=== PATIENT | male | born 1960 | race Caucasian/White ===

== ENCOUNTER 2018-09-09 15:10 | Outpatient (REF) | payer MEDICARE, MEDICAID, SELFPAY ==
[2018-09-09 19:43] LABS: ALT 17 U/L (12-78); AST 17 U/L (15-37); Albumin 3.4 g/dL (3.4-5.0); Alkaline Phosphatase 58 U/L (46-116); Anion Gap 10.1 mmol/L (3-11); BUN 22 mg/dL (7-18); Bilirubin, Total 0.3 mg/dL (0.2-1.0); CO2 25.9 mmol/L (21.0-32.0); CREATININE 0.88 mg/dL (0.70-1.30); Calcium 9.2 mg/dL (8.5-10.1); Chloride 104 mmol/L (98-107); Cholesterol 180 mg/dL (50-200); Glucose 78 mg/dL (70-100); HDL Cholesterol 91 mg/dL (40-60); LDL CHOLESTEROL 72 mg/dL (<100); Potassium 4.7 mmol/L (3.5-5.1); Sodium 140 mmol/L (136-145); TSH (W/Ref FT4) 0.82 uIU/mL (0.358-3.74); Total Protein 7.5 g/dL (6.4-8.2); Triglyceride 78 mg/dL (30-150)
[2018-09-09 20:15] LABS: Magnesium 1.5 mg/dL (1.8-2.4)
== END 2018-09-09 15:30 ==
LOC: NCHCN 15:10
PROVIDERS: PCP Family Medicine; Visit Provider Family Medicine
DX: I25.10 Atherosclerotic heart disease of native coronary artery without angina pectoris (principal); F10.20 Alcohol dependence, uncomplicated; R94.6 Abnormal results of thyroid function studies
CPT/HCPCS: 80053; 80061; 83721; 83735; 84443

== ENCOUNTER 2019-10-10 15:16 | Outpatient (REF) | payer MEDICARE, MEDICAID, SELFPAY ==
[2019-10-10 21:04] LABS: HCT 35.3 % (40.0-50.0); HGB 11.5 g/dL (13.5-17.5); Mean Corp. HGB Concentration 32.6 g/dL (32.0-36.0); Mean Corpuscular Hemoglobin 28.8 pg (27.0-33.0); Mean Corpuscular Volume 88.5 fL (80-95); Mean Platelet Volume 10.4 fL (8.0-11.0); Platelet Count 313 x1000/uL (130-400); RBC 3.99 m/cumm (4.50-6.00); RBC Distribution Width 15.9 % (11.8-14.1); White Blood Cell Count 8.31 k/cumm (4.4-10.8)
[2019-10-10 21:08] LABS: Magnesium 1.4 mg/dL (1.8-2.4); TSH (W/Ref FT4) 0.72 uIU/mL (0.36-3.74); Vitamin B12 445 pg/mL (193-986)
[2019-10-12 11:53] LABS: HIV-1/2 Ag & Ab Screen Negative (Negative)
== END 2019-10-10 15:36 ==
LOC: NCHCN 15:16
PROVIDERS: PCP Family Medicine; Visit Provider Family Medicine
DX: D64.9 Anemia, unspecified (principal); E61.2 Magnesium deficiency; Z11.4 Encounter for screening for human immunodeficiency virus [HIV]; K51.90 Ulcerative colitis, unspecified, without complications; R94.6 Abnormal results of thyroid function studies
CPT/HCPCS: 85027; 87389; 82607; 83735; 84443

== ENCOUNTER 2021-11-25 19:24 | Outpatient (REF) | payer OTHER, MEDICAID, SELFPAY ==
[2021-11-25 20:13] LABS: HGB 14.9 g/dL (13.5-17.5); MCH 29.1 pg (27.0-33.0); MCHC 32.4 % (32.0-36.0); MCV 89.8 fL (80-95); MPV 10.6 fL (8.0-11.0); Platelet Count 323 10^3/uL (130-400); RBC 5.12 10^6/uL (4.36-5.78); RDW 14.5 % (11.8-14.1); RDW-SD 47.9 fL; WBC 9.08 10^3/uL (4.4-10.8)
[2021-11-25 20:21] LABS: Iron 76 ug/dL (65-175); Total Iron Binding Capacity 347 ug/dL (250-450); Transferrin Sat 22 % (20-55)
[2021-11-25 20:35] LABS: Anion Gap 10.1 mmol/L (3-11); BUN 17 mg/dL (7-18); CO2 25.9 mmol/L (21.0-32.0); Calcium 9.4 mg/dL (8.5-10.1); Calculated LDL 90 mg/dL (<100); Chloride 104 mmol/L (98-107); Cholesterol 187 mg/dL (<200); Ferritin 131 ng/mL (26-388); Glucose 95 mg/dL (74-106); HDL Cholesterol 85 mg/dL (40-60); Magnesium 1.6 mg/dL (1.8-2.4); Potassium 3.7 mmol/L (3.5-5.1); Sodium 140 mmol/L (136-145); Triglyceride 61 mg/dL (<150)
[2021-11-25 20:52] LABS: Hemoglobin A1C 5.5 % (<5.7)
== END 2021-11-25 19:25 | disposition home or self-care (01) ==
LOC: NCHCN 19:24
PROVIDERS: PCP Family Medicine; Visit Provider Family Medicine
DX: D64.9 Anemia, unspecified (principal); I25.10 Atherosclerotic heart disease of native coronary artery without angina pectoris; F25.9 Schizoaffective disorder, unspecified; E61.2 Magnesium deficiency; R79.89 Other specified abnormal findings of blood chemistry
CPT/HCPCS: 80048; 80061; 85027; 82728; 83036; 83540; 83550; 83735

== ENCOUNTER 2022-12-15 16:27 | Outpatient (REF) | payer OTHER, MEDICAID, SELFPAY ==
[2022-12-15 19:35] LABS: Magnesium 1.7 mg/dL (1.8-2.4); Vitamin B12 887 pg/mL (193-986)
== END 2022-12-15 16:28 | disposition home or self-care (01) ==
LOC: NCHCN 16:27
PROVIDERS: PCP Family Medicine; Visit Provider Family Medicine
DX: E61.2 Magnesium deficiency (principal); K51.90 Ulcerative colitis, unspecified, without complications; Z90.49 Acquired absence of other specified parts of digestive tract; Z79.899 Other long term (current) drug therapy
CPT/HCPCS: 82607; 83735

== ENCOUNTER → 2023-06-08 14:19 | Outpatient (BNVA) | payer OTHER, MEDICAID, SELFPAY | PROVIDERS: PCP Family Medicine; Referring Provider Family Medicine; Visit Provider Podiatrist | DX: B35.1 Tinea unguium (principal); L60.3 Nail dystrophy; E05.90 Thyrotoxicosis, unspecified without thyrotoxic crisis or storm; Z79.01 Long term (current) use of anticoagulants; L84 Corns and callosities | CPT/HCPCS: 11055; 11721 ==

== ENCOUNTER → 2023-09-14 14:27 | Outpatient (BNVA) | payer OTHER, MEDICAID, SELFPAY | PROVIDERS: PCP Family Medicine; Referring Provider Family Medicine; Visit Provider Podiatrist | DX: B35.1 Tinea unguium (principal); L60.3 Nail dystrophy; L84 Corns and callosities; E05.90 Thyrotoxicosis, unspecified without thyrotoxic crisis or storm; R94.6 Abnormal results of thyroid function studies; Z79.01 Long term (current) use of anticoagulants | CPT/HCPCS: 11055; 11057; 11721 ==

== ENCOUNTER → 2024-01-11 14:25 | Outpatient (BNVA) | payer OTHER, MEDICAID, SELFPAY | PROVIDERS: PCP Nurse Practitioner Family; Referring Provider Nurse Practitioner Family; Visit Provider Podiatrist | DX: B35.1 Tinea unguium (principal); L60.3 Nail dystrophy; L84 Corns and callosities; E05.90 Thyrotoxicosis, unspecified without thyrotoxic crisis or storm; R94.6 Abnormal results of thyroid function studies; Z79.01 Long term (current) use of anticoagulants; L85.1 Acquired keratosis [keratoderma] palmaris et plantaris; R09.89 Other specified symptoms and signs involving the circulatory and respiratory systems; L65.9 Nonscarring hair loss, unspecified; M21.41 Flat foot [pes planus] (acquired), right foot; M21.42 Flat foot [pes planus] (acquired), left foot; L60.8 Other nail disorders; I73.89 Other specified peripheral vascular diseases | CPT/HCPCS: 11057; 11721 ==

== ENCOUNTER 2024-01-31 18:11 | Outpatient (REF) | payer OTHER, MEDICAID, SELFPAY ==
[2024-01-31 18:54] LABS: HGB 14.1 g/dL (13.5-17.5); MCH 29.2 pg (27.0-33.0); MCHC 32.8 % (32.0-36.0); MCV 89 fL (80-95); Platelet Count 293 10^3/uL (130-400); RBC 4.83 10^6/uL (4.36-5.78); RDW 13.8 % (11.8-14.1); WBC 8.09 10^3/uL (4.4-10.8)
[2024-01-31 19:21] LABS: Hemoglobin A1C 5.6 % (<5.7)
[2024-01-31 19:46] LABS: Iron 65 ug/dL (65-175); Total Iron Binding Capacity 401 ug/dL (250-450); Transferrin Sat 16 % (20-55)
[2024-01-31 19:51] LABS: ALT 28 U/L (16-63); AST 22 U/L (15-37); Albumin 3.6 g/dL (3.4-5.0); Alkaline Phosphatase 81 U/L (46-116); Anion Gap 8.5 mmol/L (3-11); BUN 18 mg/dL (7-18); Bilirubin, Total 0.51 mg/dL (0.2-1.0); CO2 28.5 mmol/L (21.0-32.0); Calcium 9.2 mg/dL (8.5-10.1); Calculated LDL 99 mg/dL (<100); Chloride 103 mmol/L (98-107); Cholesterol 211 mg/dL (<200); Estimated GFR 85.63 (mL/min/1.73m2); Ferritin 117 ng/mL (26-388); Folate 18.1 ng/mL (8.6-20.0); Glucose 88 mg/dL (74-106); HDL Cholesterol 99 mg/dL (40-60); Magnesium 1.8 mg/dL (1.8-2.4); Potassium 4.8 mmol/L (3.5-5.1); Sodium 140 mmol/L (136-145); Total Protein 8.1 g/dL (6.4-8.2); Triglyceride 67 mg/dL (<150); Vitamin B12 819 pg/mL (193-986); Vitamin D 25 Total 18.6 ng/mL (30-100)
== END 2024-01-31 18:12 | disposition home or self-care (01) ==
LOC: NCHCN 18:11
PROVIDERS: PCP Nurse Practitioner Family; Visit Provider Nurse Practitioner Family
DX: I25.10 Atherosclerotic heart disease of native coronary artery without angina pectoris (principal); F25.8 Other schizoaffective disorders; E55.9 Vitamin D deficiency, unspecified; K51.90 Ulcerative colitis, unspecified, without complications; Z86.2 Personal history of diseases of the blood and blood-forming organs and certain disorders involving the immune mechanism; Z79.899 Other long term (current) drug therapy; Z90.49 Acquired absence of other specified parts of digestive tract; Z93.2 Ileostomy status
CPT/HCPCS: 80053; 80061; 82306; 85027; 82607; 82728; 82746; 83036; 83540; 83550; 83735

== ENCOUNTER → 2024-05-16 14:29 | Outpatient (BNVA) | payer OTHER, MEDICAID, SELFPAY | PROVIDERS: PCP Nurse Practitioner Family; Referring Provider Nurse Practitioner Family; Visit Provider Podiatrist | DX: B35.1 Tinea unguium (principal); L60.3 Nail dystrophy; L84 Corns and callosities; E05.90 Thyrotoxicosis, unspecified without thyrotoxic crisis or storm; R94.6 Abnormal results of thyroid function studies; Z79.01 Long term (current) use of anticoagulants; R09.89 Other specified symptoms and signs involving the circulatory and respiratory systems; L60.2 Onychogryphosis; L60.8 Other nail disorders | CPT/HCPCS: 11057; 11721 ==

== ENCOUNTER → 2024-09-12 14:27 | Outpatient (BNVA) | payer MEDICARE, MEDICAID, SELFPAY | PROVIDERS: PCP Nurse Practitioner Family; Referring Provider Nurse Practitioner Family; Visit Provider Podiatrist | DX: L60.3 Nail dystrophy (principal); B35.1 Tinea unguium; L84 Corns and callosities; E05.90 Thyrotoxicosis, unspecified without thyrotoxic crisis or storm; R94.6 Abnormal results of thyroid function studies; Z79.01 Long term (current) use of anticoagulants; R09.89 Other specified symptoms and signs involving the circulatory and respiratory systems; I25.10 Atherosclerotic heart disease of native coronary artery without angina pectoris; E55.9 Vitamin D deficiency, unspecified; M79.671 Pain in right foot; M79.672 Pain in left foot; L85.8 Other specified epidermal thickening; L60.2 Onychogryphosis; L60.8 Other nail disorders; I73.89 Other specified peripheral vascular diseases | CPT/HCPCS: 11057; 11721 ==

== ENCOUNTER 2024-11-09 10:56 | Emergency (ER) | payer MEDICARE, MEDICAID, SELFPAY ==
[2024-11-09 11:09] VITALS: BP 157/81; PULSE 72; RESP 17; TEMP 36.7; O2SAT 99
[2024-11-09 11:12] VITALS: BP 157/81; PULSE 72; RESP 17; TEMP 36.7; O2SAT 99
--- NOTE | 2024-11-09 11:29 | W.ED.GENAD ---
Discharge Plan Disposition Patient Disposition: Home Condition: Stable Discharge Details Clinical Impression: Intestinal stoma prolapse Primary Care Provider: TING DAVILA ED Provider: Jagdish Dean Home Meds and New Rx's Prescriptions: Continued ketoconazole 2 % cream 1 applic topical DAILY magnesium oxide 400 mg magnesium capsule 400 mg PO BID olanzapine [Zyprexa] 5 MG tablet 5 mg PO HS calcium carbonate [Calcium 600] 600 MG tablet 600 mg PO BID mirtazapine 45 MG tablet 45 mg PO HS folic acid 1 MG tablet 1 mg PO DAILY cholecalciferol (vitamin D3) 1,000 UNITS tablet 1,000 unit PO .MON/WED/FRI Patient Comments: pt not able to confirm at this time cyanocobalamin (vitamin B-12) 2,500 MCG tablet 1,000 mcg PO DAILY Patient Comments: pt lethargic, not answering questions well. atorvastatin [Lipitor] 40 MG tablet 40 mg PO QPM Qty: 90 0RF metoprolol succinate 100 MG tablet extended release 24 hr 100 mg PO DAILY Qty: 90 0RF clopidogrel [Plavix] 75 MG tablet 75 mg PO DAILY Qty: 90 0RF Discharge Instructions Instructions: Ileostomy Diet Additional Instructions: You were seen in the emergency department for your prolapsed stoma, it has been prolapsed in the past and has been this way for months, it is working properly has no evidence of obstruction or necrosis, I discussed this with the surgeon, you are welcome to do an outpatient follow-up by speaking with your primary care provider for your referral to surgery practice of your choice, I have attached the number of Dr. Bowling who did your prior surgery as well as our surgical office, please contact your primary care for referral, please return to the ER for any signs of obstruction or necrosis or blackness to your stoma. Referrals: [facility] [Provider Group] [facility] [Outside] (Dr. Bowling who did your prior surgery works here now.) TING DAVILA, [employer] [Primary Care Provider] - Discharge Data Discharge Date/Time-TO BE ENTERED AT DEPARTURE: 11/09/24 11:42 HPI General Date/Time Provider Initiated Documentation: 11/09/24 11:22. 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 Bowling. Quality described as stoma at its baseline, it is very prolapsed at least 10 inches, but patient said this has been this way before, it does reduce at he calms on his own, but immediately comes back out, no radiation to blockage, black or necrotic tissue on stoma, melena, bright red stool in stoma bag. Severity is described as 0/10. Palliating factors include nothing specific. Provoking factors include nothing specific. Patient not anticoagulated. Related Data Home Medications ?Medication ?Instructions ?Recorded ?Confirmed calcium carbonate (Calcium 600) 600 mg PO BID 02/04/14 09/12/24 cholecalciferol (vitamin D3) 25 1,000 unit PO .MON/WED/Wed02/04/14 09/12/24 mcg (1,000 unit) tablet folic acid 1 mg tablet 1 mg PO DAILY 02/04/14 09/12/24 mirtazapine 45 mg tablet 45 mg PO HS 02/04/14 09/12/24 olanzapine 5 mg tablet (Zyprexa) 5 mg PO HS 02/04/14 09/12/24 cyanocobalamin (vitamin B-12) 1,000 mcg PO DAILY 08/05/16 09/12/24 2,500 mcg tablet atorvastatin 40 mg tablet (Lipitor) 40 mg PO QPM #90 tabs 08/09/16 09/12/24 clopidogrel 75 mg tablet (Plavix) 75 mg PO DAILY #90 tabs 08/09/16 09/12/24 metoprolol succinate 100 mg 100 mg PO DAILY ##90 08/09/16 09/12/24 tablet,extended release 24 hr magnesium oxide 400 mg PO BID 02/17/23 09/12/24 ketoconazole 2 % topical cream 1 applic topical DAILY 05/15/24 09/12/24 Previous Rx's ?Medication ?Instructions ?Recorded atorvastatin 40 mg tablet (Lipitor) 40 mg PO QPM #90 tabs 08/09/16 clopidogrel 75 mg tablet (Plavix) 75 mg PO DAILY #90 tabs 08/09/16 metoprolol succinate 100 mg 100 mg PO DAILY ##90 08/09/16 tablet,extended release 24 hr Allergies Allergy/AdvReac Type Severity Reaction Status Date / Time aspirin Allergy Severe SEVERE Unverified 09/14/23 14:40 HIVES Penicillins Allergy Unknown unkown Unverified 09/14/23 14:40 General Stated Complaint: Abd Prob JONH: 3 Review of Systems All systems reviewed & are unremarkable except as noted in HPI and below Exam Narrative Exam Narrative: GENERAL APPEARANCE: Well-nourished, non-toxic, awake and alert, atraumatic, no acute distress. SKIN: Warm, pink, dry, intact, without rashes/lesions/ulcerations. HEAD: Normocephalic, atraumatic, normal hair distribution for gender/age. EYES: Normal conjunctiva, no exudates on lids/lashes. ENT: Nares patent, no circumoral cyanosis, no facial swelling NECK: Supple, trachea midline, painless cervical ROM. LUNGS/CHEST: Non-labored respirations, normal A/P diameter, symmetrical expansion, no chest wall deformity HEART (CV/PV): No peripheral edema, no JVD. ABDOMEN: Soft, non-distended, no guarding, R abdominal stoma, prolapsed 10, normal appearing stool in stoma bag, no necrotic tissue, no abdominal tenderness or erythema. MSK: Normal ROM, no swelling/deformity to bilateral UEs or LEs, moving all extremities without weakness, no cyanosis, spine midline without tenderness, normal curvature. NEURO: Mental Status AAOx4 - alert to person, place, time, events No facial droop, no forehead involvement. Motor: No focal weakness - strength 5/5 in bilateral UEs and LEs, proximal and distal, symmetric. Sensory: sensation intact to light touch globally. Gait normal: patient ambulated without ataxia into ED room. PSYCH: euthymic, cooperative, pleasant, appropriate speech Course Vital Signs Vital signs: Vital Signs Temperature 36.7 C 11/09/24 11:09 Pulse 72 11/09/24 11:09 Respiratory Rate 17 11/09/24 11:09 Blood Pressure 157/81 H 11/09/24 11:09 Pulse Oximetry 99 11/09/24 11:09 Temperature 36.7 C 11/09/24 11:12 Temperature Source Temporal Artery Scan 11/09/24 11:12 Pulse 72 11/09/24 11:12 Respiratory Rate 17 11/09/24 11:12 Blood Pressure 157/81 H 11/09/24 11:12 Blood Pressure Position Sitting 11/09/24 11:12 Pulse Oximetry 99 11/09/24 11:12 Oxygen Delivery Method Room Air 11/09/24 11:12 Oxygen Flow Rate 0 11/09/24 11:12 Pain Level 0 11/09/24 11:12 Medical Decision Making This dictation utilizes [id number] dictation software and may contain unedited grammatical errors. 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 Bowling. Quality described as stoma at its baseline, it is very prolapsed at least 10 inches, but patient said this has been this way before, it does reduce at he calms on his own, but immediately comes back out, no radiation to blockage, black or necrotic tissue on stoma, melena, bright red stool in stoma bag. Severity is described as 0/10. Palliating factors include nothing specific. Provoking factors include nothing specific. Patients' medical history: History of anemia, kidney failure, cardiac history, history of alcohol abuse, schizophrenia, Crohn's disease. Family and social history: Lives independently, eats normal diet. Pertinent exam findings / vital signs include intestinal stoma prolapse in the right abdomen about 10 inches, no necrotic tissue, normal-appearing stool in stoma bag, no tenderness or abdominal erythema. Differential / pathologies of concern include chronic intestinal stoma prolapse. Diagnostic studies of: - None. ED Course: - Discussed with Dr. Hammer of surgery on-call, he reassures that there is nothing to do without any sign of obstruction or necrosis of the stoma stump, we discussed the history that this has been this way for many years, patient is welcome to follow-up with Dr. Bowling or surgeon of his choosing in a nonemergent outpatient manner for possible revision but patient is apprehensive to have another surgery. Findings not consistent with necrosis, obstruction, infection, acute surgical emergent complication. Disposition of Intestinal Stoma Prolapse. Patient verbalized understanding of the plan and return to ED criteria and engaged in shared decision making. Medical Records Medical records reviewed: Yes I reviewed the patient's medical records. Quality:SDOH Health Related Social Needs: No Data to Display PFSH All Active Problems (Updated 11/09/24 @ 11:30 by EVENS Krishnamurthy) Intestinal stoma prolapse (Acute) Right knee pain (Acute) Deficiency of other specified B group vitamins (Acute) Dx code required for routine at-risk foot care coverage. folate supplementation, has colostomy. Anticoagulant long-term use (Acute) Onychomycosis (Acute) CAD (coronary artery disease) (Chronic) Tobacco use (Acute) Magnesium deficiency (Acute) Pain, foot (Acute) Corns and callosities (Acute) Nail dystrophy (Acute) Schizophrenia (Acute) Dermatitis, chemical (Acute) Crohns disease (Acute) ulcerative colitis with hx of colectomy Hyperthyroidism determined by thyroid function test (Acute) Medical History Anemia UTI (urinary tract infection) Acute kidney failure ST elevation myocardial infarction (STEMI) ST segment changes on electrocardiogram Alcoholism /alcohol abuse in remission Acute prerenal azotemia Hypokalemia Social History Smoking/Tobacco Use Status: Current-Occasional Tobacco Type: cigarettes Smoking risk assessment performed?: Yes Drug use: Occasionally Substance use type: marijuana Do you feel safe in your relationship?: Yes PAWSS Have you Been Recently Intoxicated or Drunk Within the Last 30 days?: No Have you Ever Experienced Previous Episodes of Alcohol Withdrawal?: No Have you ever Experienced Withdrawal Seizures?: No Have you ever Experienced Delirium Tremens(DT)s?: No Have you ever undergone Alcohol Rehabilitation Treatment (i.e, inpt ot outpatient treatment programs)?: No Have you ever Experienced Blackouts?: No Have you ever Combined Alcohol with other Downers within the last 90 days?: No Have you ever Combined Alcohol with any other Substance of Abuse during the last 90 days?: No Result: 0
== END 2024-11-09 11:42 | disposition home or self-care (01) ==
PROVIDERS: Emergency Provider Physician Assistant; PCP Nurse Practitioner Family
DX: K94.09 Other complications of colostomy (principal); I25.10 Atherosclerotic heart disease of native coronary artery without angina pectoris; I25.2 Old myocardial infarction; E03.9 Hypothyroidism, unspecified; F17.210 Nicotine dependence, cigarettes, uncomplicated; Z79.02 Long term (current) use of antithrombotics/antiplatelets
CPT/HCPCS: 99283

== ENCOUNTER → 2025-01-08 13:43 | Outpatient (BNVA) | payer MEDICARE, MEDICAID, SELFPAY | PROVIDERS: PCP Nurse Practitioner Family; Referring Provider Nurse Practitioner Family; Visit Provider Podiatrist | DX: L60.3 Nail dystrophy (principal); B35.1 Tinea unguium; L84 Corns and callosities; Z79.01 Long term (current) use of anticoagulants; M79.671 Pain in right foot; M79.672 Pain in left foot; I73.89 Other specified peripheral vascular diseases; E53.8 Deficiency of other specified B group vitamins; R09.89 Other specified symptoms and signs involving the circulatory and respiratory systems; R20.8 Other disturbances of skin sensation; L65.9 Nonscarring hair loss, unspecified; L60.2 Onychogryphosis; L60.8 Other nail disorders; L85.8 Other specified epidermal thickening | CPT/HCPCS: 11056; 11721 ==

== ENCOUNTER → 2025-05-07 11:23 | Outpatient (BNVA) | payer MEDICARE, MEDICAID, SELFPAY | PROVIDERS: PCP Nurse Practitioner Family; Referring Provider Nurse Practitioner Family; Visit Provider Podiatrist | DX: L60.3 Nail dystrophy (principal); B35.1 Tinea unguium; Z79.01 Long term (current) use of anticoagulants; L84 Corns and callosities; E53.8 Deficiency of other specified B group vitamins; I73.89 Other specified peripheral vascular diseases; M79.671 Pain in right foot; M79.672 Pain in left foot; R09.89 Other specified symptoms and signs involving the circulatory and respiratory systems; R20.8 Other disturbances of skin sensation; L65.9 Nonscarring hair loss, unspecified; R23.4 Changes in skin texture; L60.2 Onychogryphosis; L60.8 Other nail disorders | CPT/HCPCS: 11056; 11721 ==